=== PATIENT | female | born 1970 | race African-American/Black ===

== ENCOUNTER 2020-08-02 17:39 | Observation (INO) ==
[2020-08-02] MEDS ORDERED: ONDANSETRON 4 MG/2 ML VIAL IV STA (21:41)
[2020-08-02] MEDS ORDERED: SODIUM CHLORIDE 0.9% 1,000 ML IV STA (21:41)
[2020-08-02] MEDS ORDERED: HYDROmorphone 2 MG/1 ML VIAL IV STA (21:41)
[2020-08-02] MEDS ORDERED: PANTOPRAZOLE 40 MG VIAL IV STA (21:41)
[2020-08-02 22:13] LABS: Basophils # 0.1 10*3/uL (0.0-0.2); Basophils % 0.6 % (0.0-0.8); Hemoglobin 14.7 GM/DL (12.0-16.0); Immature Granulocytes % 0.6 %; Lymphocytes # 1.4 10*3/uL (1.4-4.0); Lymphocytes % 7.6 % (21.3-54.2); Mean Corpuscular HGB Conc 33.4 GM/DL (32-36); Mean Corpuscular Volume 101.4 FL (87-102); Mean Platelet Volume 10.4 FL (9.6-12.0); Monocytes % 4.5 % (1.7-12.7); NRBC # 0.03 10*3/uL; Neutrophils % 86.7 % (38.7-73.9); Platelet Count 249 T/CUMM (130-400); Red Blood Count 4.34 MC/CUMM (3.8-5.5); Red Cell Distribution Width 16.2 % (9.3-17.3); White Blood Count 17.7 T/CUMM (4-12)
[2020-08-02 22:27] LABS: Apearance,Urine Slightly Hazy (Clear); Bacteria,Urine Occasional /HPF (Few); Bilirubin,Urine Negative (Negative); Blood, Urine Small mg/dL (Negative); Glucose,Urine (UA) Negative (Negative); Granular Casts,Urine 1 /LPF (0-1); Hyaline Casts,Urine 43 /LPF (0-3); Ketones,Urine 80 mg/dL (Negative); Mucus,Urine Occasional /LPF (Occasional); Nitrite,Urine Negative (Negative); Protein,Urine 30 MG/DL; RBC,Urine 2 /HPF (0-4); Squamous Epithelial Cell,Urine Occasional /HPF (0-10); Urine Color Yellow (Yellow); Urine Specific Gravity 1.016 (1.001-1.035); WBC,Urine 2 /HPF (0-6)
[2020-08-02 22:49] LABS: Alanine Aminotransferase 69 U/L (13-56); Albumin 3.5 G/DL (3.4-5.0); Alkaline Phosphatase 203 U/L (45-117); Amylase 70 U/L (25-115); Aspartate Amino Transferase 204 U/L (0-37); Blood Urea Nitrogen 4 MG/DL (7-18); Calcium 9.7 MG/DL (8.5-10.1); Estimated Glom Filtration Rate 100 ML/MIN; Glucose 53 MG/DL (74-106); Osmolality,Calculated 268.7 MOS/KG (273-304); Total Protein 7.9 G/DL (6.4-8.3)
[2020-08-02 23:00] LABS: Barbiturates Screen,Urine Negative (Negative); Benzodiazepines Screen,Urine Negative (Negative); Cannabinoid Screen,Urine Negative (Negative); Opiate Screen,Urine Negative (Negative); Phencyclidine Screen,Urine Negative (Negative)
[2020-08-02] MEDS ORDERED: DEXTROSE 50% 25 GM/50 ML VIAL IV STA (23:05)
[2020-08-02] MEDS ORDERED: MAGNESIUM SULF RIDER 2 GM in PREMIX 1 EACH IV STA (23:05)
[2020-08-02] MEDS ORDERED: DEXTROSE 50% 25 GM/50 ML SYRINGE IV ONE (23:07)
[2020-08-02] MEDS ORDERED: PIPERACILLIN/TAZOBACTAM 3,375 MG in SODIUM CHLORIDE 0.9% 100 ML IV STA (23:10)
[2020-08-02] MEDS ORDERED: ALBUTEROL/IPRATROPIUM 3 ML NEB RESP TX PRN (23:56)
[2020-08-02] MEDS ORDERED: HYDROmorphone 2 MG/1 ML VIAL IV PRN (23:56)
[2020-08-02] MEDS ORDERED: ONDANSETRON 4 MG/2 ML VIAL IV PRN (23:56)
[2020-08-02] MEDS ORDERED: ACETAMINOPHEN 325 MG TABLET PO PRN (23:56)
[2020-08-03] MEDS: SODIUM CHLORIDE 0.9% 1,000 ML IV SCH ×2 (00:42→17:16)
[2020-08-03 04:44] LABS: Basophils # 0.1 10*3/uL (0.0-0.2); Basophils % 0.5 % (0.0-0.8); Hemoglobin 13.1 GM/DL (12.0-16.0); Immature Granulocytes % 0.2 %; Immature Granulocytes Absolute 0.03 #; Lymphocytes # 1.7 10*3/uL (1.4-4.0); Lymphocytes % 13.4 % (21.3-54.2); Mean Corpuscular HGB Conc 33.6 GM/DL (32-36); Mean Corpuscular Volume 99.7 FL (87-102); Mean Platelet Volume 10.2 FL (9.6-12.0); Monocytes % 6.1 % (1.7-12.7); Neutrophils % 79.8 % (38.7-73.9); Platelet Count 198 T/CUMM (130-400); Red Blood Count 3.91 MC/CUMM (3.8-5.5); Red Cell Distribution Width 15.9 % (9.3-17.3); White Blood Count 12.6 T/CUMM (4-12)
[2020-08-03 04:59] LABS: Albumin 2.9 G/DL (3.4-5.0); Bilirubin,Total 1.1 MG/DL (0.2-1.0); Calcium 8.4 MG/DL (8.5-10.1); Osmolality,Calculated 270.7 MOS/KG (273-304)
[2020-08-03] MEDS ORDERED: PIPERACILLIN/TAZOBACTAM 3,375 MG in SODIUM CHLORIDE 0.9% 100 ML IV SCH (08:00)
[2020-08-03] MEDS: PANTOPRAZOLE 40 MG VIAL IV SCH (08:53)
[2020-08-03] MEDS ORDERED: BUPIVACAINE MPF 0.25% 30 ML VIAL ONE (12:55)
[2020-08-03] MEDS ORDERED: LIDOCAINE 1%/EPI INJ 20 ML VIAL ONE (12:55)
[2020-08-03] MEDS ORDERED: TISSUE ADHESIVE 1 EACH APPLICATOR TOP ONE (12:55)
[2020-08-03] MEDS ORDERED: LACTATED RINGERS 1,000 ML IV SCH (13:30)
[2020-08-03] MEDS ORDERED: cefOXitin 2,000 MG in SYRINGE 1 EACH IV ONE (13:30)
[2020-08-03] MEDS ORDERED: ALBUTEROL/IPRATROPIUM 3 ML NEB RESP TX ONE (14:45)
[2020-08-03] MEDS ORDERED: propofoL 200 MG/20 ML VIAL IV ONE (14:53)
[2020-08-03] MEDS ORDERED: ONDANSETRON 4 MG/2 ML VIAL ONE (14:54)
[2020-08-03] MEDS ORDERED: fentaNYL 100 MCG/2 ML VIAL ONE (14:54)
[2020-08-03] MEDS ORDERED: MIDAZOLAM 2 MG/2 ML VIAL ONE (14:54)
[2020-08-03] MEDS ORDERED: SEVOFLURANE 1 UNIT/15 MINUTE INH ONE (14:54)
[2020-08-03] MEDS ORDERED: LABETALOL 100 MG/20 ML VIAL IV ONE (14:54)
[2020-08-03] MEDS ORDERED: LIDOCAINE 2% 5 ML VIAL ONE (14:54)
[2020-08-03] MEDS ORDERED: GLYCOPYRROLATE 0.4 MG/2 ML VIAL ONE (14:55)
[2020-08-03] MEDS ORDERED: ROCURONIUM 100 MG/10 ML VIAL IV ONE (14:55)
[2020-08-03] MEDS ORDERED: NEOSTIGMINE 10 MG/10 ML VIAL ONE (14:55)
[2020-08-03] MEDS ORDERED: SUGAMMADEX 200 MG/2 ML VIAL IV ONE (15:00)
[2020-08-03] MEDS ORDERED: diphenhydrAMINE 50 MG/1 ML VIAL ONE (15:04)
[2020-08-03] MEDS ORDERED: RACEPINEPHRINE 0.5 ML NEB RESP TX ONE ×2 (15:07→15:08)
[2020-08-03] MEDS ORDERED: diphenhydrAMINE 50 MG/1 ML VIAL IV ONE (15:08)
[2020-08-03] MEDS ORDERED: methylPREDNISolone SOD SUC 125 MG/2 ML VIAL IV ONE (15:09)
[2020-08-03] MEDS ORDERED: FAMOTIDINE 20 MG/2 ML VIAL IV ONE ×2 (15:29→15:31)
[2020-08-03] MEDS ORDERED: EPINEPHrine 1 MG/ML VIAL ONE (15:29)
[2020-08-03] MEDS ORDERED: EPINEPHrine 1 MG/ML VIAL SUBCUT ONE (15:32)
[2020-08-03] MEDS ORDERED: LORazepam 2 MG/1 ML VIAL IV ONE (15:39)
[2020-08-03] MEDS ORDERED: ENOXAPARIN 40 MG/0.4 ML SYRINGE SUBCUT SCH (17:20)
[2020-08-03] MEDS ORDERED: diphenhydrAMINE CAP 25 MG CAPSULE PO PRN (21:14)
[2020-08-04] MEDS: SODIUM CHLORIDE 0.9% 1,000 ML IV SCH ×3 (00:43→08:31)
[2020-08-04] MEDS: PANTOPRAZOLE 40 MG VIAL IV SCH (08:27)
[2020-08-04 12:09] VITALS: BP 102/69
== END 2020-08-04 12:51 | disposition home or self-care (01) ==
LOC: N.EDINP 17:39 → N.ED 17:39 → N.5E 08-03 07:24
PROVIDERS: ADMIT Surgery; ATTEND Surgery
PROC: LAPCHOL (2020-08-03 13:46)